=== PATIENT | male | born 2000 | race Caucasian/White ===

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

== ENCOUNTER 2021-05-01 23:14 | Observation (INO) | payer OTHER ==
[~2021-05-01] VITALS: Ht 177.8 cm; Wt 78.6 kg
[~2021-05-01 23:14] MED LIST: STEROID EYE; ZOFRAN 4MG T4 MG/TAB PO
[2021-05-01 23:43] LABS: BASO # 0.1 (0.0-0.2); EOS # 0.7 (0.0-0.7); EOS % 10.1 % (0-4.0); GRAN # 2.3 (1.4-6.5); GRAN % 33.4 % (42.2-75.2); HEMATOCRIT 45.2 % (42.0-52.0); HEMOGLOBIN 15.3 g/dl (13.5-18.0); LYMPH # 2.9 (1.2-3.4); LYMPH % 42.8 % (20.0-51.0); MEAN CELL VOLUME 83 fl (80.0-100.0); MEAN CORPUSCULAR HEMOGLOBIN 28 pg (27.0-31.0); MEAN CORPUSCULAR HGB CONC 34 g/dl (33.0-37.0); MEAN PLATELET VOLUME 11.3 fl (7.4-10.4); MONO # 0.9 (0.1-0.6); MONO % 12.6 % (1.7-9.3); PLATELET COUNT 241 K/mm3 (130-400); RED BLOOD COUNT 5.42 M/mm3 (4.20-5.60); REDCELL DISTRIBUTION WIDTH-CV 11.8 % (11.5-14.5)
[2021-05-01 23:55] LABS: ANION GAP 7 mmol/L (7-16); BLOOD UREA NITROGEN 20 mg/dL (9-20); CALCIUM 9.5 mg/dL (8.4-10.2); CARBON DIOXIDE 27 mmol/L (22-30); CHLORIDE 106 mmol/L (98-107); CREATININE, serum 0.97 (0.66-1.25); GLUCOSE 92 mg/dL (74-106); POTASSIUM 4.1 mmol/L (3.4-5.0); SODIUM 139 mmol/L (137-145)
[2021-05-01 23:58] LABS: C-REACTIVE PROTEIN < 0.5 mg/dL (0.0-0.9)
[2021-05-02] VITALS (10 sets, daily range): BP systolic 109–142; BP diastolic 53–83; PULSE 60–87; TEMP 97.5–99.1
[2021-05-02 00:47] LABS: COLLECTION METHOD CLEAN CATCH
[2021-05-02 00:58] LABS: AMORPHOUS CRYSTAL Present /uL; MUCOUS Present /lpf; PH 7 (5-8); SQUAMOUS EPITHELIAL None Seen /hpf; URINE APPEARANCE Cloudy; URINE BACTERIA None Seen /hpf; URINE BILIRUBIN Negative (NEGATIVE); URINE BLOOD 1+ (NEGATIVE); URINE COLOR Yellow; URINE GLUCOSE Negative (NEGATIVE); URINE KETONE Negative (NEGATIVE); URINE LEUKOCYTE ESTERASE Negative (NEGATIVE); URINE NITRATE Negative (NEGATIVE); URINE PROTEIN(semi-quant) Negative (NEGATIVE); URINE UROBILINOGEN Negative (NEGATIVE)
--- NOTE | 2021-05-02 03:00 | NUR ---
PT ADMITTED TO ROOM 331 PER W/C FROM ER. TALKING ON CELL PHONE. PAIN LEVEL 1-2/10. NO NAUSEA. SEE ASSESSMENT FOR FURTHER INFO. CALL LIGHT IN REACH. INSTRUCTED TO USE URINAL AND NOTIFY NURSE TO STRAIN ALL URINE. PT VERBALIZED UNDERSTANDING.
--- NOTE | 2021-05-02 05:36 | NUR ---
PT RESTING QUIETLY. NO DISTRESS. [employer] CONTROLLING PAIN AT PRESENT TIME.
--- NOTE | 2021-05-02 08:30 | NUR ---
Ns bolus as ordered. Patient reported feeling dehydrated. He remains NPO for possible Or. Urine strained.
--- NOTE | 2021-05-02 10:30 | NUR ---
Patient to Or with Shirley. Ns to gravity. Consent obtained, after discussed options with patient. Will await his return
[2021-05-02] MEDS ORDERED: NORCO 325 MG-51 TAB PO (11:35)
[2021-05-02] MEDS ORDERED: PYRIDIUM 100MG100 MG PO (11:35)
--- NOTE | 2021-05-02 13:00 | NUR ---
Patient rating pain 10\10 , in tears. notified & medication orders obtained & given. Second tab of percocet, levsin , & azo. Vitals stable. Will monitor closely.
--- NOTE | 2021-05-02 14:40 | NUR ---
Patient has done well post op. His father at his side. He tolerated meal tray. Voiding bloody tinged urine. Ready for discharge. Education given. We dicussed the importance of hydration. We reviewed scripts sent to pharmacy of medication safety & side effects. Int Dc. [facility] taking [facility] home.
== END 2021-05-02 14:40 | disposition home or self-care (01) ==
LOC: COL.ER 23:14 → SURG 05-02 01:56 → COL.ER 05-02 01:56 → SURG 05-02 14:40
PROVIDERS: Emergency Medicine; ADMIT Urology
DX: N20.1 Calculus of ureter (principal)
CPT/HCPCS: OP; C1769; C1894; G0378; J0690; J1100; J1170; J1885; J2405; J2704; J3010; J7030; J7040; Q9967